=== PATIENT | female | born 2000 ===

== ENCOUNTER 2021-11-12 19:58 | Outpatient (REF) | payer OTHER, SELFPAY ==
[2021-11-12 20:29] LABS: COVID-19 Test Negative (Negative); IDNOW Serial# 9DD0AD1C
== END 2021-11-12 19:59 | disposition home or self-care (01) ==
LOC: HO.LNP 19:58
PROVIDERS: Visit Provider Internal Medicine
DX: Z20.822 Contact with and (suspected) exposure to COVID-19 (principal)
CPT/HCPCS: 87635